=== PATIENT | male | born 1950 | race Caucasian/White ===

== ENCOUNTER 2023-05-16 06:17 | Inpatient (IN) | payer MEDICARE, OTHER ==
[~2023-05-16] VITALS: Ht 162.6 cm; Wt 72.6 kg
[2023-05-16] MEDS ORDERED: RAMI1.2527 PO (06:31)
[2023-05-16] MEDS ORDERED: ALPR0.255 PO (06:31)
[2023-05-16] MEDS ORDERED: AMLO2.5T2 PO (06:31)
[2023-05-16] MEDS ORDERED: HYDR-4676 PO (06:31)
[2023-05-16] MEDS ORDERED: PROC5TAB56 PO (06:31)
[2023-05-16] MEDS ORDERED: ATOR10TA PO (06:31)
[2023-05-16] MEDS ORDERED: FAMO10TA41 PO (06:31)
[2023-05-16] MEDS ORDERED: ZOLP1.752 SL (06:31)
[2023-05-16] MEDS ORDERED: LITH150C PO (06:31)
[2023-05-16] MEDS: PANTOPRAZOLE SODIUM IV 80 MG in IV DEXTROSE 5% 100 ML IV ONE ×2 (07:40→08:02)
[2023-05-16] MEDS ORDERED: PANTOPRAZOLE SODIUM 40 MG VIAL ONE ×3 (07:46→21:20)
[2023-05-16 08:15] LABS: BASOPHILS # (AUTO) 0.1 K/UL (0.0-0.2); BASOPHILS % (AUTO) 0.8 % (0.0-2.0); EOSINOPHILS # (AUTO) 0.1 K/uL (0.0-0.7); HEMATOCRIT 45.3 % (36.7-47.1); HEMOGLOBIN 15.7 g/dL (12.5-16.3); LYMPHOCYTES # (AUTO) 1.1 K/uL (0.8-4.8); LYMPHOCYTES % (AUTO) 9.4 % (20.5-51.5); MEAN CORPUSCULAR HEMOGLOBIN 33.8 uug (23.8-33.4); MEAN CORPUSCULAR HGB CONC 35 g/dL (32.5-36.3); MEAN CORPUSCULAR VOLUME 97.5 fL (73.0-96.2); MONOCYTES # (AUTO) 0.8 K/uL (0.1-1.30); MONOCYTES % (AUTO) 6.8 % (0.0-11.0); NEUTROPHILS # (AUTO) 9.7 K/uL (1.8-8.9); PLATELET COUNT (AUTO) 313 K/uL (152-348); RED BLOOD CELL COUNT(AUTO) 4.65 MIL/uL (4.06-5.63); RED CELL DISTRIBUTION WIDTH 14.6 % (12.1-16.2); WHITE BLOOD COUNT (AUTO) 11.9 K/uL (3.6-10.2)
[2023-05-16 08:26] LABS: DIFFERENTIAL COMMENT 1; MAGNESIUM 2.7 mg/dL (1.8-2.4)
[2023-05-16 08:27] LABS: ETHANOL < 3 MG/DL (0-10)
[2023-05-16 08:32] LABS: ALANINE AMINOTRANSFERASE 24 U/L (16-63); ALBUMIN 4.1 g/dL (3.4-5.0); ALKALINE PHOSPHATASE 126 U/L (50-136); ASPARTATE AMINOTRANSFERASE 19 U/L (15-37); BILIRUBIN,DIRECT 0.2 mg/dL (0.0-0.2); BILIRUBIN,TOTAL 0.6 mg/dL (0.2-1.0); CALCIUM 9.8 mg/dL (8.5-10.1); CARBON DIOXIDE 25 mmol/L (21-32); CHLORIDE 105 mmol/L (98-107); CREATINE KINASE, TOTAL 109 U/L (39-308); CREATININE 0.8 mg/dL (0.6-1.3); GLUCOSE 131 mg/dL (74-106); POTASSIUM 3.1 mmol/L (3.5-5.1); SODIUM SERUM 143 mmol/L (136-145); TOTAL PROTEIN, SERUM 7.7 g/dL (6.4-8.2); UREA NITROGEN, BLOOD 9 mg/dL (7-18)
[2023-05-16 08:38] LABS: ACETAMINOPHEN < 2.0 ug/mL (10-30)
[2023-05-16 09:16] LABS: *BILIRUBIN,URIN NEGATIVE (NEGATIVE); *BLOOD, URINE NEGATIVE (NEGATIVE); *CLARITY,URINE CLEAR (CLEAR); *COLOR,URINE LIGHT YELLOW (YELLOW); *KETONES,URINE TRACE (NEGATIVE); *PROTEIN,URINE NEGATIVE (NEGATIVE); *UROBILINOGEN,URINE 0.2 E.U./dl (NORMAL); LEUKOCYTE ESTERASE ,URINE NEGATIVE (NEGATIVE); NITRITE, URINE NEGATIVE (NEGATIVE); UGLUCOSE NEGATIVE (NEGATIVE)
[2023-05-16] MEDS ORDERED: PIPERACILLIN/TAZO 4.5 GM VIAL IV ONE (09:20)
[2023-05-16] MEDS: PIPERACILLIN SODIUM/TAZOBACTAM 4.5 G in IV DEXTROSE 5% 50 ML IV ONE (09:32)
[2023-05-16] MEDS: IV NORMAL SALINE 1000 ML BAG IV ONE (09:39)
[2023-05-16 09:43] LABS: *AMPHETAMINE, URINE NEGATIVE (NEGATIVE); *BARBITURATE, URINE NEGATIVE (NEGATIVE); *BENZODIAZEPINE, URINE POSITIVE (NEGATIVE); *CANNABINOID, URINE POSITIVE (NEGATIVE); *COCCAINE, URINE NEGATIVE (NEGATIVE); *OPIATE, URINE NEGATIVE (NEGATIVE); *PHENCYCLIDINE SCREEN,URINE NEGATIVE (NEGATIVE); FENTANYL, URINE NEGATIVE (NEGATIVE)
[2023-05-16] MEDS: ETOMIDATE 20 MG/10 ML VIAL IV ONE (12:10)
[2023-05-16] MEDS: SUCCINYLCHOLINE CHLORIDE 200 MG/10 ML VIAL IV ONE (12:10)
[2023-05-16 12:37] LABS: BACTERIA,URINE NONE SEEN /HPF (NONE SEEN); RBC,URINE 0-3 /HPF (0-3); SQUAMOUS EPITHELIAL CELL,UR NONE SEEN /HPF (NONE SEEN); WBC,URINE 0-3 /HPF (0-3)
[2023-05-16] MEDS ORDERED: PANTOPRAZOLE SODIUM IV 40 MG in IV DEXTROSE 5% 100 ML IV SCH (12:45)
[2023-05-16 13:21] LABS: ABG BASE EXCESS -4.9 mmol/L (-2.0-2.0); ABG HCO3 18.7 mmol/L (22.0-26.0); ABG PCO2 31.1 mmHg (35.0-48.0); ABG PH 7.396 (7.340-7.440); ABG SITE RIGHT RADIAL; ABG TOTAL HEMOGLOBIN 15.3 G/dL (14.0-18.0); AaDO2 95.7 mmHg; COHb 0.8 % (0.0-3.9); MetHb 0.3 % (0.0-1.5); O2Hb 95.6 % (94.0-97.0)
[2023-05-16] MEDS ORDERED: PROPOFOL 100 ML IV PRN (15:00)
[2023-05-16] MEDS ORDERED: MAGNESIUM HYDROXIDE 30 ML LIQUID UDC PO PRN (15:00)
[2023-05-16] MEDS ORDERED: IV NS 1000 ML 1,000 ML IV PRN (15:00)
[2023-05-16] MEDS ORDERED: ONDANSETRON 4 MG/2 ML VIAL IV PRN (15:00)
[2023-05-16] MEDS ORDERED: POTASSIUM CHLORIDE 100 ML ONE (15:22)
[2023-05-16] MEDS: PANTOPRAZOLE SODIUM 40 MG VIAL IV SCH (15:24)
[2023-05-16 15:34] LABS: ABG BASE EXCESS -4.6 mmol/L (-2.0-2.0); ABG HCO3 18.8 mmol/L (22.0-26.0); ABG PCO2 30.7 mmHg (35.0-48.0); ABG PH 7.404 (7.340-7.440); ABG PO2 259.3 mmHg (75.0-100.0); ABG SITE RIGHT RADIAL; ABG TOTAL HEMOGLOBIN 15.7 G/dL (14.0-18.0); AaDO2 99.6 mmHg; COHb 0.5 % (0.0-3.9); MetHb 0.5 % (0.0-1.5); O2Hb 98.6 % (94.0-97.0); VT, ABG 450 mL
[2023-05-16] MEDS: POTASSIUM CHLORIDE 50 ML IV SCH (15:35)
[2023-05-16 16:40] LABS: ABG BASE EXCESS -3.7 mmol/L (-2.0-2.0); ABG HCO3 18.3 mmol/L (22.0-26.0); ABG PCO2 26.1 mmHg (35.0-48.0); ABG PH 7.463 (7.340-7.440); ABG PO2 77.4 mmHg (75.0-100.0); ABG SITE RIGHT RADIAL; ABG TOTAL HEMOGLOBIN 15.4 G/dL (14.0-18.0); AaDO2 96.3 mmHg; COHb 0.7 % (0.0-3.9); MetHb 0.4 % (0.0-1.5); O2Hb 95.7 % (94.0-97.0); VT, ABG 450 mL
[2023-05-16] MEDS ORDERED: ROCURONIUM BROMIDE 50 MG/5 ML VIAL ONE (17:00)
[2023-05-16] MEDS ORDERED: SUCCINYLCHOLINE CHLORIDE 200 MG/10 ML VIAL ONE (17:00)
[2023-05-16] MEDS ORDERED: ETOMIDATE 20 MG/10 ML VIAL ONE (17:00)
[2023-05-16 17:26] LABS: CALCIUM 9.1 mg/dL (8.5-10.1); CARBON DIOXIDE 18 mmol/L (21-32); CHLORIDE 111 mmol/L (98-107); CREATININE 0.9 mg/dL (0.6-1.3); GLUCOSE 183 mg/dL (74-106); POTASSIUM 4.1 mmol/L (3.5-5.1); SODIUM SERUM 142 mmol/L (136-145); UREA NITROGEN, BLOOD 11 mg/dL (7-18)
[2023-05-16] MEDS: VANCOMYCIN IV 1,000 MG in IV DEXTROSE 5% 250 ML IV SCH (17:57)
[2023-05-16] MEDS ORDERED: VANCOMYCIN IV 200 ML ONE (17:57)
[2023-05-16] MEDS ORDERED: LIDOCAINE 2%-EPI 1:100,000 20 ML VIAL ONE (18:27)
[2023-05-16] MEDS: FENTANYL CITRATE/PF 1,000 MCG in IV NORMAL SALINE 80 ML IV PRN (18:30)
[2023-05-16] MEDS: ROCURONIUM BROMIDE 50 MG/5 ML VIAL IV ONE (18:45)
[2023-05-16] MEDS ORDERED: PIPERACILLIN/TAZOBACTAM/D5W 50 ML IV ONE (19:27)
[2023-05-16] MEDS: PIPERACILLIN SODIUM/TAZOBACTAM 3.375 G in IV DEXTROSE 5% 50 ML IV SCH (19:28)
[2023-05-17 07:21] LABS: BASOPHILS % (AUTO) 0.2 % (0.0-2.0); HEMATOCRIT 37.7 % (36.7-47.1); HEMOGLOBIN 13.1 g/dL (12.5-16.3); LYMPHOCYTES # (AUTO) 0.8 K/uL (0.8-4.8); LYMPHOCYTES % (AUTO) 5.3 % (20.5-51.5); MEAN CORPUSCULAR HEMOGLOBIN 33.7 uug (23.8-33.4); MEAN CORPUSCULAR HGB CONC 35 g/dL (32.5-36.3); MEAN CORPUSCULAR VOLUME 97.3 fL (73.0-96.2); MONOCYTES % (AUTO) 6.4 % (0.0-11.0); NEUTROPHILS # (AUTO) 14.1 K/uL (1.8-8.9); NEUTROPHILS % (AUTO) 88.1 % (38.5-71.5); PLATELET COUNT (AUTO) 263 K/uL (152-348); RED BLOOD CELL COUNT(AUTO) 3.88 MIL/uL (4.06-5.63); RED CELL DISTRIBUTION WIDTH 14.7 % (12.1-16.2)
[2023-05-17 07:42] LABS: DIFFERENTIAL COMMENT 1
[2023-05-17 07:53] LABS: CARBON DIOXIDE 24 mmol/L (21-32); CHLORIDE 112 mmol/L (98-107); CHOLESTEROL 113 mg/dL (<200); CREATININE 1.1 mg/dL (0.6-1.3); GLUCOSE 223 mg/dL (74-106); HDL CHOLESTEROL 60 mg/dL (40-60); MAGNESIUM 2.6 mg/dL (1.8-2.4); PHOSPHOROUS 3.1 mg/dL (2.5-4.9); POTASSIUM 3.5 mmol/L (3.5-5.1); SODIUM SERUM 145 mmol/L (136-145); TRIGLYCERIDES 36 MG/DL (30-150); UREA NITROGEN, BLOOD 19 mg/dL (7-18)
[2023-05-17 08:24] LABS: CALCIUM 9.1 mg/dL (8.5-10.1)
[2023-05-17] MEDS ORDERED: PANTOPRAZOLE SODIUM 40 MG VIAL ONE ×2 (09:31→21:09)
[2023-05-17] MEDS ORDERED: VANCOMYCIN IV 200 ML ONE (17:31)
[2023-05-17] MEDS ORDERED: PIPERACILLIN/TAZOBACTAM/D5W 50 ML IV ONE ×2 (18:42→21:09)
[2023-05-18] VITALS (21 sets, daily range): BP systolic 101–170; BP diastolic 59–95; TEMP 98.8–100.2; O2SAT 95–99
[2023-05-18 04:13] LABS: BASOPHILS # (AUTO) 0.1 K/UL (0.0-0.2); BASOPHILS % (AUTO) 0.3 % (0.0-2.0); HEMATOCRIT 39.9 % (36.7-47.1); HEMOGLOBIN 13.8 g/dL (12.5-16.3); LYMPHOCYTES # (AUTO) 0.8 K/uL (0.8-4.8); MEAN CORPUSCULAR HEMOGLOBIN 33.8 uug (23.8-33.4); MEAN CORPUSCULAR HGB CONC 35 g/dL (32.5-36.3); MEAN CORPUSCULAR VOLUME 97.4 fL (73.0-96.2); MONOCYTES # (AUTO) 1.5 K/uL (0.1-1.30); MONOCYTES % (AUTO) 7.7 % (0.0-11.0); NEUTROPHILS # (AUTO) 16.7 K/uL (1.8-8.9); PLATELET COUNT (AUTO) 266 K/uL (152-348); RED CELL DISTRIBUTION WIDTH 14.4 % (12.1-16.2)
[2023-05-18] MEDS ORDERED: VANCOMYCIN IV 200 ML ONE (04:30)
[2023-05-18] MEDS ORDERED: PIPERACILLIN/TAZOBACTAM/D5W 50 ML IV ONE ×3 (04:31→18:23)
[2023-05-18 04:48] LABS: CALCIUM 9.6 mg/dL (8.5-10.1); CARBON DIOXIDE 22 mmol/L (21-32); CHLORIDE 113 mmol/L (98-107); CREATININE 1.1 mg/dL (0.6-1.3); GLUCOSE 181 mg/dL (74-106); MAGNESIUM 2.2 mg/dL (1.8-2.4); PHOSPHOROUS 3.1 mg/dL (2.5-4.9); POTASSIUM 3.5 mmol/L (3.5-5.1); SODIUM SERUM 149 mmol/L (136-145); UREA NITROGEN, BLOOD 19 mg/dL (7-18)
[2023-05-18 05:12] LABS: DIFFERENTIAL COMMENT 1
[2023-05-18 05:23] LABS: ABG BASE EXCESS -4.3 mmol/L (-2.0-2.0); ABG PCO2 39.4 mmHg (35.0-48.0); ABG PH 7.344 (7.340-7.440); ABG TOTAL HEMOGLOBIN 14.5 G/dL (14.0-18.0); AaDO2 98.5 mmHg; COHb 0.6 % (0.0-3.9); MetHb 0.4 % (0.0-1.5); O2Hb 97.9 % (94.0-97.0); VT, ABG 450 mL
[2023-05-18] MEDS: IV 1/2NS 1000 ML 1,000 ML IV PRN (09:15)
[2023-05-18] MEDS ORDERED: PANTOPRAZOLE SODIUM 40 MG VIAL ONE ×2 (10:20→21:00)
[2023-05-18] MEDS: VANCOMYCIN IV 1,250 MG in IV DEXTROSE 5% 250 ML IV SCH (12:01)
[2023-05-18] MEDS: FENTANYL CITRATE/PF 1,000 MCG in IV NORMAL SALINE 80 ML IV PRN (18:28)
[2023-05-18] MEDS ORDERED: NEOMY/BACITRA/POLYMYXIN B OINT UD PACKET TP ONE (21:43)
[2023-05-18] MEDS: NEOMY/BACITRA/POLYMYXIN B OINT UD PACKET TP SCH (21:44)
[2023-05-19] VITALS (24 sets, daily range): BP systolic 113–158; BP diastolic 70–99; TEMP 99.6–100.2; O2SAT 95–98
[2023-05-19] MEDS ORDERED: PIPERACILLIN SODIUM/TAZO 3.375 GM VIAL ONE (01:36)
[2023-05-19 05:08] LABS: ABG BASE EXCESS -3.2 mmol/L (-2.0-2.0); ABG HCO3 21.3 mmol/L (22.0-26.0); ABG PCO2 36.4 mmHg (35.0-48.0); ABG PH 7.385 (7.340-7.440); ABG PO2 79.2 mmHg (75.0-100.0); ABG SITE LEFT RADIAL; ABG TOTAL HEMOGLOBIN 13.9 G/dL (14.0-18.0); AaDO2 95.6 mmHg; COHb 0.5 % (0.0-3.9); MetHb 0.4 % (0.0-1.5); O2Hb 95.3 % (94.0-97.0); VT, ABG 450 mL
[2023-05-19] MEDS ORDERED: PIPERACILLIN/TAZOBACTAM/D5W 0 ML IV ONE (06:21)
[2023-05-19 06:48] LABS: CALCIUM 9.5 mg/dL (8.5-10.1); CARBON DIOXIDE 24 mmol/L (21-32); CHLORIDE 116 mmol/L (98-107); CREATININE 1.2 mg/dL (0.6-1.3); GLUCOSE 127 mg/dL (74-106); MAGNESIUM 2.2 mg/dL (1.8-2.4); POTASSIUM 3.1 mmol/L (3.5-5.1); SODIUM SERUM 150 mmol/L (136-145); UREA NITROGEN, BLOOD 19 mg/dL (7-18)
[2023-05-19 08:03] LABS: BASOPHILS # (AUTO) 0.1 K/UL (0.0-0.2); BASOPHILS % (AUTO) 0.6 % (0.0-2.0); DIFFERENTIAL COMMENT 0; EOSINOPHILS # (AUTO) 0.1 K/uL (0.0-0.7); EOSINOPHILS % (AUTO) 0.4 % (0.0-7.0); HEMATOCRIT 37.1 % (36.7-47.1); HEMOGLOBIN 12.8 g/dL (12.5-16.3); LYMPHOCYTES % (AUTO) 7.5 % (20.5-51.5); MEAN CORPUSCULAR HEMOGLOBIN 33.6 uug (23.8-33.4); MEAN CORPUSCULAR HGB CONC 34 g/dL (32.5-36.3); MEAN CORPUSCULAR VOLUME 97.6 fL (73.0-96.2); MONOCYTES # (AUTO) 1.5 K/uL (0.1-1.30); MONOCYTES % (AUTO) 10.8 % (0.0-11.0); NEUTROPHILS # (AUTO) 10.8 K/uL (1.8-8.9); NEUTROPHILS % (AUTO) 80.7 % (38.5-71.5); PLATELET COUNT (AUTO) 261 K/uL (152-348); RED BLOOD CELL COUNT(AUTO) 3.81 MIL/uL (4.06-5.63); RED CELL DISTRIBUTION WIDTH 14.3 % (12.1-16.2); WHITE BLOOD COUNT (AUTO) 13.4 K/uL (3.6-10.2)
[2023-05-19] MEDS ORDERED: PANTOPRAZOLE SODIUM 40 MG VIAL ONE ×2 (09:08→21:13)
[2023-05-19] MEDS ORDERED: PIPERACILLIN/TAZOBACTAM/D5W 50 ML IV ONE (09:09)
[2023-05-19] MEDS ORDERED: NEOMY/BACITRAC/POLYMI OINT 28.35 GM TUBE ONE (09:09)
[2023-05-19] MEDS ORDERED: POTASSIUM CHLORIDE 200 ML ONE (09:26)
[2023-05-19] MEDS: POTASSIUM CHLORIDE 50 ML IV SCH (09:27)
[2023-05-19] MEDS: PIPERACILLIN SODIUM/TAZOBACTAM 3.375 G in IV DEXTROSE 5% 100 ML IV SCH (13:59)
[2023-05-20] MEDS: VANCOMYCIN IV 1,250 MG in IV DEXTROSE 5% 250 ML IV SCH (00:09)
[2023-05-20 05:21] LABS: BASOPHILS # (AUTO) 0.1 K/UL (0.0-0.2); BASOPHILS % (AUTO) 0.8 % (0.0-2.0); EOSINOPHILS # (AUTO) 0.2 K/uL (0.0-0.7); EOSINOPHILS % (AUTO) 1.9 % (0.0-7.0); HEMATOCRIT 37.5 % (36.7-47.1); HEMOGLOBIN 13.4 g/dL (12.5-16.3); LYMPHOCYTES # (AUTO) 1.8 K/uL (0.8-4.8); LYMPHOCYTES % (AUTO) 14.2 % (20.5-51.5); MEAN CORPUSCULAR HEMOGLOBIN 34.8 uug (23.8-33.4); MEAN CORPUSCULAR HGB CONC 36 g/dL (32.5-36.3); MEAN CORPUSCULAR VOLUME 97.3 fL (73.0-96.2); MONOCYTES # (AUTO) 1.4 K/uL (0.1-1.30); MONOCYTES % (AUTO) 11.4 % (0.0-11.0); NEUTROPHILS # (AUTO) 8.9 K/uL (1.8-8.9); NEUTROPHILS % (AUTO) 71.7 % (38.5-71.5); PLATELET COUNT (AUTO) 246 K/uL (152-348); RED BLOOD CELL COUNT(AUTO) 3.85 MIL/uL (4.06-5.63); RED CELL DISTRIBUTION WIDTH 14.3 % (12.1-16.2); WHITE BLOOD COUNT (AUTO) 12.5 K/uL (3.6-10.2)
[2023-05-20 05:23] LABS: DIFFERENTIAL COMMENT 1
[2023-05-20 05:32] LABS: CALCIUM 9.3 mg/dL (8.5-10.1); CARBON DIOXIDE 23 mmol/L (21-32); CHLORIDE 119 mmol/L (98-107); CREATININE 1.2 mg/dL (0.6-1.3); GLUCOSE 115 mg/dL (74-106); MAGNESIUM 2.3 mg/dL (1.8-2.4); PHOSPHOROUS 3.2 mg/dL (2.5-4.9); POTASSIUM 3.6 mmol/L (3.5-5.1); UREA NITROGEN, BLOOD 20 mg/dL (7-18)
[2023-05-20 05:36] LABS: ABG BASE EXCESS -4.4 mmol/L (-2.0-2.0); ABG PCO2 34.7 mmHg (35.0-48.0); ABG PH 7.378 (7.340-7.440); ABG PO2 69.2 mmHg (75.0-100.0); ABG TOTAL HEMOGLOBIN 14.3 G/dL (14.0-18.0); AaDO2 93.7 mmHg; COHb 1.1 % (0.0-3.9); MetHb 0.5 % (0.0-1.5); O2Hb 93.6 % (94.0-97.0); VT, ABG 450 mL
[2023-05-20 05:38] LABS: SODIUM SERUM 156 mmol/L (136-145)
[2023-05-20] MEDS ORDERED: PANTOPRAZOLE SODIUM 40 MG VIAL ONE ×2 (08:57→21:08)
[2023-05-20] MEDS ORDERED: hydrALAZINE HCL 20 MG/1 ML VIAL IV PRN (14:00)
[2023-05-20] MEDS ORDERED: RAMI10CA69 PO (14:21)
[2023-05-20] MEDS ORDERED: ATOR40TA PO (14:21)
[2023-05-20] MEDS ORDERED: AMLO-212 PO (14:21)
[2023-05-20] MEDS ORDERED: CLOP75TA15 PO (14:21)
[2023-05-20] MEDS ORDERED: ZOLP5TAB8 PO (14:24)
[2023-05-20] MEDS ORDERED: FAMO40TA7 PO (14:25)
[2023-05-20] MEDS ORDERED: LITH450T2 PO (14:25)
[2023-05-20] MEDS ORDERED: VENL150C58 PO (16:26)
[2023-05-20] MEDS ORDERED: METH36TA PO (16:26)
[2023-05-20] MEDS ORDERED: ASPI81TA31 PO (16:27)
[2023-05-20] MEDS ORDERED: NEOMY/BACITRA/POLYMYXIN B OINT UD PACKET TP ONE (21:08)
[2023-05-21] VITALS (17 sets, daily range): BP systolic 109–171; BP diastolic 58–88; TEMP 99–99.6; O2SAT 94–97
[2023-05-21] MEDS ORDERED: FENTANYL CITRATE 100 MCG/2 ML AMPUL ONE (02:25)
[2023-05-21 05:34] LABS: BASOPHILS # (AUTO) 0.1 K/UL (0.0-0.2); BASOPHILS % (AUTO) 0.5 % (0.0-2.0); EOSINOPHILS # (AUTO) 0.1 K/uL (0.0-0.7); EOSINOPHILS % (AUTO) 0.6 % (0.0-7.0); HEMATOCRIT 37.8 % (36.7-47.1); HEMOGLOBIN 12.9 g/dL (12.5-16.3); LYMPHOCYTES # (AUTO) 1.1 K/uL (0.8-4.8); LYMPHOCYTES % (AUTO) 10.1 % (20.5-51.5); MEAN CORPUSCULAR HEMOGLOBIN 33.6 uug (23.8-33.4); MEAN CORPUSCULAR HGB CONC 34 g/dL (32.5-36.3); MEAN CORPUSCULAR VOLUME 98.4 fL (73.0-96.2); MONOCYTES # (AUTO) 1.1 K/uL (0.1-1.30); MONOCYTES % (AUTO) 10.1 % (0.0-11.0); NEUTROPHILS # (AUTO) 8.8 K/uL (1.8-8.9); NEUTROPHILS % (AUTO) 78.7 % (38.5-71.5); PLATELET COUNT (AUTO) 230 K/uL (152-348); RED BLOOD CELL COUNT(AUTO) 3.84 MIL/uL (4.06-5.63); RED CELL DISTRIBUTION WIDTH 14.4 % (12.1-16.2); WHITE BLOOD COUNT (AUTO) 11.2 K/uL (3.6-10.2)
[2023-05-21 05:55] LABS: CREATININE 1.2 mg/dL (0.6-1.3); POTASSIUM 3.5 mmol/L (3.5-5.1)
[2023-05-21 06:17] LABS: DIFFERENTIAL COMMENT 1
[2023-05-21] MEDS ORDERED: ACETAMINOPHEN 325 MG TABLET ONE (06:57)
[2023-05-21] MEDS: ACETAMINOPHEN 325 MG TABLET PO PRN (07:03)
[2023-05-21] MEDS ORDERED: hydrALAZINE HCL 20 MG/1 ML VIAL ONE ×2 (08:20→15:16)
[2023-05-21] MEDS: hydrALAZINE HCL 20 MG/1 ML VIAL IV PRN (08:26)
[2023-05-21] MEDS ORDERED: PANTOPRAZOLE SODIUM 40 MG VIAL ONE ×2 (09:20→21:14)
[2023-05-21] MEDS: IV D5W 1000ML 1,000 ML IV PRN (10:00)
[2023-05-21] MEDS ORDERED: ACETAMINOPHEN 650 MG/20.3 ML LIQUID UDC ONE (15:16)
[2023-05-21] MEDS: PROTEIN SUPPLEMENT (PROSTAT) 30 ML LIQUID GT SCH (17:00)
[2023-05-22] VITALS (20 sets, daily range): BP systolic 109–184; BP diastolic 62–91; TEMP 98.1–101.2; O2SAT 95–99
[2023-05-22 04:31] LABS: BASOPHILS # (AUTO) 0.1 K/UL (0.0-0.2); BASOPHILS % (AUTO) 0.6 % (0.0-2.0); EOSINOPHILS # (AUTO) 0.2 K/uL (0.0-0.7); EOSINOPHILS % (AUTO) 1.5 % (0.0-7.0); LYMPHOCYTES # (AUTO) 1.1 K/uL (0.8-4.8); LYMPHOCYTES % (AUTO) 8.6 % (20.5-51.5); MEAN CORPUSCULAR HGB CONC 35 g/dL (32.5-36.3); MONOCYTES # (AUTO) 1.3 K/uL (0.1-1.30); MONOCYTES % (AUTO) 9.4 % (0.0-11.0); NEUTROPHILS # (AUTO) 10.7 K/uL (1.8-8.9); NEUTROPHILS % (AUTO) 79.9 % (38.5-71.5); PLATELET COUNT (AUTO) 226 K/uL (152-348); RED BLOOD CELL COUNT(AUTO) 3.82 MIL/uL (4.06-5.63); RED CELL DISTRIBUTION WIDTH 14.3 % (12.1-16.2); WHITE BLOOD COUNT (AUTO) 13.4 K/uL (3.6-10.2)
[2023-05-22 04:43] LABS: DIFFERENTIAL COMMENT 1
[2023-05-22 04:48] LABS: CALCIUM 9.1 mg/dL (8.5-10.1); CREATININE 1.1 mg/dL (0.6-1.3); MAGNESIUM 2.2 mg/dL (1.8-2.4); PHOSPHOROUS 2.1 mg/dL (2.5-4.9); POTASSIUM 3.1 mmol/L (3.5-5.1)
[2023-05-22] MEDS ORDERED: hydrALAZINE HCL 20 MG/1 ML VIAL ONE (08:09)
[2023-05-22 08:13] LABS: ABG BASE EXCESS -0.8 mmol/L (-2.0-2.0); ABG PCO2 35.9 mmHg (35.0-48.0); ABG PH 7.424 (7.340-7.440); ABG PO2 85.8 mmHg (75.0-100.0); ABG SITE LEFT RADIAL; ABG TOTAL HEMOGLOBIN 18.1 G/dL (14.0-18.0); AaDO2 96.7 mmHg; COHb 0.8 % (0.0-3.9); MetHb 0.4 % (0.0-1.5); O2Hb 96.2 % (94.0-97.0)
[2023-05-22] MEDS ORDERED: PANTOPRAZOLE SODIUM 40 MG VIAL ONE (08:27)
[2023-05-22] MEDS ORDERED: ACETAMINOPHEN 650 MG/20.3 ML LIQUID UDC ONE (08:38)
[2023-05-22] MEDS ORDERED: DC PROPOFOL ONCE EXTUBATED XX PRN (08:45)
[2023-05-22] MEDS: POTASSIUM CHLORIDE 20 MEQ POWDER PACKET NG ONE (11:08)
[2023-05-22] MEDS: NEUTRA PHOS PACKET GT ONE (16:31)
[2023-05-23] VITALS (8 sets, daily range): BP systolic 117–153; BP diastolic 67–79; TEMP 97.6–98.4; O2SAT 94–99
[2023-05-23] MEDS: VANCOMYCIN IV 750 MG in IV DEXTROSE 5% 250 ML IV SCH (00:22)
[2023-05-23 06:35] LABS: ABG PCO2 32.6 mmHg (35.0-48.0); ABG PH 7.467 (7.340-7.440); ABG PO2 60.5 mmHg (75.0-100.0); ABG SITE RIGHT RADIAL; ABG TOTAL HEMOGLOBIN 13.4 G/dL (14.0-18.0); AaDO2 92.8 mmHg; COHb 0.9 % (0.0-3.9); MetHb 0.3 % (0.0-1.5); O2Hb 92.7 % (94.0-97.0)
[2023-05-23 06:44] LABS: BASOPHILS # (AUTO) 0.1 K/UL (0.0-0.2); BASOPHILS % (AUTO) 0.3 % (0.0-2.0); EOSINOPHILS # (AUTO) 0.1 K/uL (0.0-0.7); EOSINOPHILS % (AUTO) 0.4 % (0.0-7.0); HEMATOCRIT 42.3 % (36.7-47.1); HEMOGLOBIN 14.5 g/dL (12.5-16.3); LYMPHOCYTES # (AUTO) 1.3 K/uL (0.8-4.8); MEAN CORPUSCULAR HEMOGLOBIN 33.5 uug (23.8-33.4); MEAN CORPUSCULAR HGB CONC 34 g/dL (32.5-36.3); MEAN CORPUSCULAR VOLUME 97.8 fL (73.0-96.2); MONOCYTES # (AUTO) 1.3 K/uL (0.1-1.30); NEUTROPHILS # (AUTO) 13.2 K/uL (1.8-8.9); NEUTROPHILS % (AUTO) 83.3 % (38.5-71.5); PLATELET COUNT (AUTO) 237 K/uL (152-348); RED BLOOD CELL COUNT(AUTO) 4.33 MIL/uL (4.06-5.63); RED CELL DISTRIBUTION WIDTH 14.2 % (12.1-16.2); WHITE BLOOD COUNT (AUTO) 15.8 K/uL (3.6-10.2)
[2023-05-23 07:02] LABS: DIFFERENTIAL COMMENT 1
[2023-05-23 07:17] LABS: CALCIUM 9.7 mg/dL (8.5-10.1); CARBON DIOXIDE 25 mmol/L (21-32); CHLORIDE 115 mmol/L (98-107); GLUCOSE 144 mg/dL (74-106); MAGNESIUM 2.6 mg/dL (1.8-2.4); PHOSPHOROUS 3.1 mg/dL (2.5-4.9); POTASSIUM 3.3 mmol/L (3.5-5.1); SODIUM SERUM 154 mmol/L (136-145); UREA NITROGEN, BLOOD 19 mg/dL (7-18)
[2023-05-23] MEDS: IV D5W 1000ML 1,000 ML IV PRN (09:42)
[2023-05-23] MEDS: POTASSIUM CHLORIDE 20 MEQ POWDER PACKET GT ONE (14:33)
[2023-05-24 04:00] VITALS: BP 137/68; TEMP 98; O2SAT 99
[2023-05-24 07:03] LABS: BASOPHILS # (AUTO) 0.2 K/UL (0.0-0.2); BASOPHILS % (AUTO) 1.3 % (0.0-2.0); EOSINOPHILS # (AUTO) 2.3 K/uL (0.0-0.7); EOSINOPHILS % (AUTO) 18.9 % (0.0-7.0); HEMATOCRIT 40.1 % (36.7-47.1); HEMOGLOBIN 13.5 g/dL (12.5-16.3); LYMPHOCYTES # (AUTO) 0.6 K/uL (0.8-4.8); LYMPHOCYTES % (AUTO) 4.6 % (20.5-51.5); MEAN CORPUSCULAR HGB CONC 34 g/dL (32.5-36.3); MONOCYTES # (AUTO) 0.6 K/uL (0.1-1.30); MONOCYTES % (AUTO) 4.6 % (0.0-11.0); NEUTROPHILS # (AUTO) 8.6 K/uL (1.8-8.9); NEUTROPHILS % (AUTO) 70.6 % (38.5-71.5); PLATELET COUNT (AUTO) 263 K/uL (152-348); RED BLOOD CELL COUNT(AUTO) 4.09 MIL/uL (4.06-5.63); RED CELL DISTRIBUTION WIDTH 14.4 % (12.1-16.2); WHITE BLOOD COUNT (AUTO) 12.2 K/uL (3.6-10.2)
[2023-05-24 07:21] LABS: DIFFERENTIAL COMMENT 1
[2023-05-24 07:35] LABS: CALCIUM 9.3 mg/dL (8.5-10.1); MAGNESIUM 2.6 mg/dL (1.8-2.4); PHOSPHOROUS 2.5 mg/dL (2.5-4.9); POTASSIUM 2.9 mmol/L (3.5-5.1)
[2023-05-24 08:00] VITALS: BP 110/72; TEMP 98.6; O2SAT 98
[2023-05-24] MEDS ORDERED: IV D5W 1000ML 1,000 ML IV ONE (10:45)
[2023-05-24] MEDS: POTASSIUM CHLORIDE 20 MEQ TAB.PRT.SR PO ONE (10:56)
[2023-05-24] MEDS: IV D5W 1000ML 1,000 ML IV ONE (10:57)
[2023-05-24 11:30] VITALS: BP 158/80; TEMP 98.3; O2SAT 97
[2023-05-24 15:38] VITALS: BP 152/66; TEMP 99.5; O2SAT 96
[2023-05-24 20:00] VITALS: BP 147/80; TEMP 98.4; O2SAT 97
[2023-05-24] MEDS: LORAZEPAM 0.5 MG TABLET PO PRN (20:56)
[2023-05-25 04:00] VITALS: BP 156/84; TEMP 98.6; O2SAT 95
[2023-05-25 07:40] LABS: BASOPHILS # (AUTO) 0.1 K/UL (0.0-0.2); BASOPHILS % (AUTO) 1.1 % (0.0-2.0); EOSINOPHILS # (AUTO) 0.3 K/uL (0.0-0.7); EOSINOPHILS % (AUTO) 3.4 % (0.0-7.0); HEMATOCRIT 36.7 % (36.7-47.1); HEMOGLOBIN 12.8 g/dL (12.5-16.3); LYMPHOCYTES % (AUTO) 9.5 % (20.5-51.5); MEAN CORPUSCULAR HEMOGLOBIN 33.6 uug (23.8-33.4); MEAN CORPUSCULAR HGB CONC 35 g/dL (32.5-36.3); MEAN CORPUSCULAR VOLUME 96.4 fL (73.0-96.2); NEUTROPHILS # (AUTO) 7.7 K/uL (1.8-8.9); PLATELET COUNT (AUTO) 280 K/uL (152-348); WHITE BLOOD COUNT (AUTO) 10.2 K/uL (3.6-10.2)
[2023-05-25 07:51] LABS: DIFFERENTIAL COMMENT 1
[2023-05-25 08:01] LABS: CALCIUM 9.2 mg/dL (8.5-10.1); MAGNESIUM 2.3 mg/dL (1.8-2.4)
[2023-05-25 08:29] LABS: POTASSIUM 2.7 mmol/L (3.5-5.1)
[2023-05-25] MEDS ORDERED: POTASSIUM CHLORIDE 20 MEQ TAB.PRT.SR PO SCH (09:30)
[2023-05-25] MEDS: POTASSIUM CHLORIDE 20 MEQ POWDER PACKET PO SCH (09:40)
[2023-05-25] MEDS: RAMIPRIL 5 MG CAPSULE PO SCH (12:25)
[2023-05-25] MEDS: LITHIUM CARBONATE CR 450 MG TABLET.SA PO SCH (12:25)
[2023-05-25] MEDS: VENLAFAXINE XR 150 MG CAP.SR.24H PO SCH (12:26)
[2023-05-25] MEDS: ALPRAZOLAM 0.25 MG TABLET PO PRN (12:37)
[2023-05-25 15:09] VITALS: TEMP 98.2
[2023-05-25] MEDS: AMLODIPINE 5 MG TABLET PO SCH (17:57)
[2023-05-25 20:00] VITALS: BP 126/77; TEMP 98.1; O2SAT 97
[2023-05-25] MEDS: ATORVASTATIN 40 MG TABLET PO SCH (20:39)
[2023-05-25] MEDS: FAMOTIDINE 20 MG TABLET PO SCH (20:40)
[2023-05-25] MEDS: QUETIAPINE FUMARATE 25 MG TABLET PO SCH (20:43)
[2023-05-26 04:00] VITALS: BP 162/104; TEMP 98.5; O2SAT 100
[2023-05-26 04:20] VITALS: BP 137/83; TEMP 98; O2SAT 99
[2023-05-26 07:02] LABS: BASOPHILS # (AUTO) 0.1 K/UL (0.0-0.2); BASOPHILS % (AUTO) 0.5 % (0.0-2.0); EOSINOPHILS % (AUTO) 0.4 % (0.0-7.0); HEMATOCRIT 39.2 % (36.7-47.1); HEMOGLOBIN 13.6 g/dL (12.5-16.3); LYMPHOCYTES # (AUTO) 0.7 K/uL (0.8-4.8); LYMPHOCYTES % (AUTO) 5.3 % (20.5-51.5); MEAN CORPUSCULAR HEMOGLOBIN 33.6 uug (23.8-33.4); MEAN CORPUSCULAR HGB CONC 35 g/dL (32.5-36.3); MONOCYTES # (AUTO) 0.9 K/uL (0.1-1.30); MONOCYTES % (AUTO) 6.6 % (0.0-11.0); NEUTROPHILS # (AUTO) 11.6 K/uL (1.8-8.9); NEUTROPHILS % (AUTO) 87.2 % (38.5-71.5); PLATELET COUNT (AUTO) 333 K/uL (152-348); RED BLOOD CELL COUNT(AUTO) 4.04 MIL/uL (4.06-5.63); RED CELL DISTRIBUTION WIDTH 13.9 % (12.1-16.2); WHITE BLOOD COUNT (AUTO) 13.3 K/uL (3.6-10.2)
[2023-05-26 07:20] LABS: DIFFERENTIAL COMMENT 1
[2023-05-26 07:24] LABS: CALCIUM 9.8 mg/dL (8.5-10.1); CARBON DIOXIDE 22 mmol/L (21-32); CHLORIDE 118 mmol/L (98-107); CREATININE 1.1 mg/dL (0.6-1.3); GLUCOSE 110 mg/dL (74-106); MAGNESIUM 2.6 mg/dL (1.8-2.4); PHOSPHOROUS 3.4 mg/dL (2.5-4.9); POTASSIUM 3.2 mmol/L (3.5-5.1); SODIUM SERUM 154 mmol/L (136-145); UREA NITROGEN, BLOOD 14 mg/dL (7-18)
[2023-05-26] MEDS: IV D5W 1000ML 1,000 ML IV ONE (09:07)
[2023-05-26] MEDS: POTASSIUM CHLORIDE 20 MEQ POWDER PACKET PO ONE (10:37)
[2023-05-26 11:09] VITALS: BP 167/75; TEMP 97.8; O2SAT 98
[2023-05-26] MEDS: OLANZAPINE 10 MG VIAL IM ONE (13:21)
[2023-05-26 15:29] VITALS: BP 155/82; TEMP 97.6; O2SAT 98
[2023-05-26 20:00] VITALS: BP 152/88; TEMP 98.7; O2SAT 94
[2023-05-27 04:00] VITALS: BP 161/89; TEMP 98.1; O2SAT 96
[2023-05-27 06:59] LABS: BASOPHILS # (AUTO) 0.1 K/UL (0.0-0.2); BASOPHILS % (AUTO) 0.8 % (0.0-2.0); EOSINOPHILS # (AUTO) 0.2 K/uL (0.0-0.7); EOSINOPHILS % (AUTO) 1.2 % (0.0-7.0); HEMATOCRIT 43.9 % (36.7-47.1); LYMPHOCYTES # (AUTO) 1.2 K/uL (0.8-4.8); MEAN CORPUSCULAR HEMOGLOBIN 33.6 uug (23.8-33.4); MEAN CORPUSCULAR HGB CONC 34 g/dL (32.5-36.3); MEAN CORPUSCULAR VOLUME 98.3 fL (73.0-96.2); MONOCYTES # (AUTO) 1.3 K/uL (0.1-1.30); MONOCYTES % (AUTO) 7.2 % (0.0-11.0); NEUTROPHILS # (AUTO) 14.6 K/uL (1.8-8.9); NEUTROPHILS % (AUTO) 83.8 % (38.5-71.5); PLATELET COUNT (AUTO) 430 K/uL (152-348); RED BLOOD CELL COUNT(AUTO) 4.46 MIL/uL (4.06-5.63); RED CELL DISTRIBUTION WIDTH 14.5 % (12.1-16.2); WHITE BLOOD COUNT (AUTO) 17.5 K/uL (3.6-10.2)
[2023-05-27 07:07] LABS: CALCIUM 10.2 mg/dL (8.5-10.1); CARBON DIOXIDE 27 mmol/L (21-32); CHLORIDE 117 mmol/L (98-107); CREATININE 1.4 mg/dL (0.6-1.3); GLUCOSE 101 mg/dL (74-106); MAGNESIUM 2.6 mg/dL (1.8-2.4); PHOSPHOROUS 3.6 mg/dL (2.5-4.9); UREA NITROGEN, BLOOD 15 mg/dL (7-18)
[2023-05-27 07:08] LABS: DIFFERENTIAL COMMENT 1
[2023-05-27 08:22] LABS: POTASSIUM 2.7 mmol/L (3.5-5.1); SODIUM SERUM 156 mmol/L (136-145)
[2023-05-27 08:43] VITALS: BP 147/75; TEMP 98; O2SAT 95
[2023-05-27] MEDS: IV D5W 1000ML 1,000 ML IV SCH (09:07)
[2023-05-27] MEDS ORDERED: LITHIUM CARBONATE 300 MG TABLET.SA PO SCH (09:15)
[2023-05-27] MEDS: LITHIUM CARBONATE 300 MG CAPSULE PO SCH (09:40)
[2023-05-27 11:36] VITALS: BP 144/67; TEMP 97.8; O2SAT 95
[2023-05-27] MEDS: POTASSIUM CHLORIDE 10 MEQ, LIDOCAINE-MPF 1% 1 ML in IV DEXTROSE 5% 100 ML IV SCH (12:18)
[2023-05-27 12:25] LABS: *BILIRUBIN,URIN NEGATIVE (NEGATIVE); *BLOOD, URINE 2+ (NEGATIVE); *CLARITY,URINE CLEAR (CLEAR); *COLOR,URINE YELLOW (YELLOW); *KETONES,URINE NEGATIVE (NEGATIVE); *PROTEIN,URINE NEGATIVE (NEGATIVE); *UROBILINOGEN,URINE 0.2 E.U./dl (NORMAL); LEUKOCYTE ESTERASE ,URINE TRACE (NEGATIVE); NITRITE, URINE NEGATIVE (NEGATIVE); UGLUCOSE NEGATIVE (NEGATIVE)
[2023-05-27 13:10] LABS: RBC,URINE 50-80 /HPF (0-3)
[2023-05-27 16:03] VITALS: BP 142/71; TEMP 97.6; O2SAT 94
[2023-05-27 17:39] VITALS: BP 148/70; TEMP 97.8; O2SAT 97
[2023-05-27] MEDS ORDERED: LORAZEPAM 2 MG/1 ML VIAL IV PRN (18:15)
[2023-05-27] MEDS: OLANZAPINE 10 MG VIAL IM ONE (18:37)
[2023-05-27 20:00] VITALS: BP 154/74; TEMP 98; O2SAT 96
[2023-05-27] MEDS: NEOMY/BACITRAC/POLYMI OINT 28.35 GM TUBE TP SCH (22:11)
[2023-05-28 04:00] VITALS: BP 163/92; TEMP 98.8; O2SAT 97
[2023-05-28 07:35] LABS: THYROID STIMULATING HORMONE 1.212 mIU/mL (0.358-3.740)
[2023-05-28] MEDS ORDERED: QUETIAPINE FUMARATE 25 MG TABLET PO PRN (08:15)
[2023-05-28 08:21] LABS: C-REACTIVE PROTEIN 4.95 mg/dL (0.00-0.30); VANCOMYCIN,RANDOM 15.1 ug/mL (20.0-30.0)
[2023-05-28 08:49] LABS: BASOPHILS # (AUTO) 0.1 K/UL (0.0-0.2); BASOPHILS % (AUTO) 0.6 % (0.0-2.0); DIFFERENTIAL COMMENT 0; EOSINOPHILS # (AUTO) 0.2 K/uL (0.0-0.7); EOSINOPHILS % (AUTO) 1.3 % (0.0-7.0); HEMATOCRIT 40.6 % (36.7-47.1); HEMOGLOBIN 13.7 g/dL (12.5-16.3); LYMPHOCYTES # (AUTO) 1.1 K/uL (0.8-4.8); LYMPHOCYTES % (AUTO) 6.8 % (20.5-51.5); MEAN CORPUSCULAR HEMOGLOBIN 33.2 uug (23.8-33.4); MEAN CORPUSCULAR HGB CONC 34 g/dL (32.5-36.3); MEAN CORPUSCULAR VOLUME 98.1 fL (73.0-96.2); MONOCYTES # (AUTO) 1.3 K/uL (0.1-1.30); MONOCYTES % (AUTO) 8.2 % (0.0-11.0); NEUTROPHILS # (AUTO) 13.3 K/uL (1.8-8.9); NEUTROPHILS % (AUTO) 83.1 % (38.5-71.5); PLATELET COUNT (AUTO) 425 K/uL (152-348); RED BLOOD CELL COUNT(AUTO) 4.14 MIL/uL (4.06-5.63); RED CELL DISTRIBUTION WIDTH 14.5 % (12.1-16.2)
[2023-05-28 08:54] LABS: CALCIUM 10.3 mg/dL (8.5-10.1); CARBON DIOXIDE 24 mmol/L (21-32); CHLORIDE 120 mmol/L (98-107); CREATININE 1.5 mg/dL (0.6-1.3); GLUCOSE 102 mg/dL (74-106); MAGNESIUM 2.8 mg/dL (1.8-2.4); PHOSPHOROUS 3.5 mg/dL (2.5-4.9); POTASSIUM 3.4 mmol/L (3.5-5.1); UREA NITROGEN, BLOOD 18 mg/dL (7-18)
[2023-05-28 08:55] LABS: SODIUM SERUM 159 mmol/L (136-145)
[2023-05-28] MEDS: VANCOMYCIN IV 1,000 MG in IV DEXTROSE 5% 250 ML IV SCH (10:28)
[2023-05-28 11:08] LABS: *BILIRUBIN,URIN NEGATIVE (NEGATIVE); *BLOOD, URINE NEGATIVE (NEGATIVE); *CLARITY,URINE CLEAR (CLEAR); *COLOR,URINE YELLOW (YELLOW); *KETONES,URINE NEGATIVE (NEGATIVE); *PROTEIN,URINE NEGATIVE (NEGATIVE); *UROBILINOGEN,URINE 0.2 E.U./dl (NORMAL); LEUKOCYTE ESTERASE ,URINE 1+ (NEGATIVE); NITRITE, URINE NEGATIVE (NEGATIVE); UGLUCOSE NEGATIVE (NEGATIVE)
[2023-05-28 11:30] VITALS: BP 149/77; TEMP 97.9; O2SAT 97
[2023-05-28 11:34] LABS: *CREATININE,URINE 55.8 mg/dL (30-125); *URINE TOTAL PROTEIN RANDOM 27.7 mg/dL (<150/24HR)
[2023-05-28] MEDS: POTASSIUM CHLORIDE 10 MEQ TAB.PRT.SR PO ONE (11:40)
[2023-05-28 11:49] LABS: RBC,URINE 0-3 /HPF (0-3)
[2023-05-28 11:50] LABS: BACTERIA,URINE MODERATE /HPF (NONE SEEN); CALCIUM OXALATE CRYSTALS,UR FEW /HPF (NONE SEEN); SQUAMOUS EPITHELIAL CELL,UR FEW /HPF (NONE SEEN); YEAST,URINE BUDDING YEAST /HPF (NONE SEEN)
[2023-05-28] MEDS ORDERED: FLUCONAZOLE 100 MG TABLET PO SCH (12:45)
[2023-05-28 16:20] VITALS: BP 133/80; TEMP 97.8; O2SAT 99
[2023-05-28 20:00] VITALS: BP 150/92; TEMP 98; O2SAT 96
[2023-05-28] MEDS: FLUCONAZOLE 100 MG TABLET PO SCH (20:40)
[2023-05-29 04:00] VITALS: BP 140/98; TEMP 99; O2SAT 99
[2023-05-29 07:42] LABS: BASOPHILS # (AUTO) 0.2 K/UL (0.0-0.2); BASOPHILS % (AUTO) 1.2 % (0.0-2.0); EOSINOPHILS # (AUTO) 0.3 K/uL (0.0-0.7); EOSINOPHILS % (AUTO) 2.3 % (0.0-7.0); HEMATOCRIT 41.1 % (36.7-47.1); LYMPHOCYTES # (AUTO) 1.1 K/uL (0.8-4.8); LYMPHOCYTES % (AUTO) 7.3 % (20.5-51.5); MEAN CORPUSCULAR HEMOGLOBIN 33.4 uug (23.8-33.4); MEAN CORPUSCULAR HGB CONC 34 g/dL (32.5-36.3); MONOCYTES # (AUTO) 1.3 K/uL (0.1-1.30); MONOCYTES % (AUTO) 8.7 % (0.0-11.0); NEUTROPHILS # (AUTO) 12.4 K/uL (1.8-8.9); NEUTROPHILS % (AUTO) 80.5 % (38.5-71.5); PLATELET COUNT (AUTO) 440 K/uL (152-348); RED BLOOD CELL COUNT(AUTO) 4.19 MIL/uL (4.06-5.63); RED CELL DISTRIBUTION WIDTH 14.5 % (12.1-16.2); WHITE BLOOD COUNT (AUTO) 15.4 K/uL (3.6-10.2)
[2023-05-29 08:04] LABS: CALCIUM 9.4 mg/dL (8.5-10.1); CARBON DIOXIDE 26 mmol/L (21-32); CHLORIDE 120 mmol/L (98-107); CREATININE 1.6 mg/dL (0.6-1.3); GLUCOSE 111 mg/dL (74-106); MAGNESIUM 2.3 mg/dL (1.8-2.4); PHOSPHOROUS 3.4 mg/dL (2.5-4.9); POTASSIUM 2.9 mmol/L (3.5-5.1); UREA NITROGEN, BLOOD 20 mg/dL (7-18)
[2023-05-29 08:17] LABS: DIFFERENTIAL COMMENT 1
[2023-05-29 08:26] VITALS: BP 150/82; TEMP 98.8; O2SAT 95
[2023-05-29 08:43] LABS: SODIUM SERUM 156 mmol/L (136-145)
[2023-05-29] MEDS: POTASSIUM CHLORIDE 50 ML IV SCH (10:58)
[2023-05-29 11:30] VITALS: BP 131/85; TEMP 98.7; O2SAT 96
[2023-05-29] MEDS: LORAZEPAM 2 MG/1 ML VIAL IV PRN (12:41)
[2023-05-29 15:59] VITALS: BP 150/84; TEMP 98.4; O2SAT 95
[2023-05-29] MEDS: CEFTRIAXONE 1 G in IV DEXTROSE 5% 50 ML IV SCH (17:11)
[2023-05-29 20:00] VITALS: TEMP 98
[2023-05-30 04:00] VITALS: TEMP 98
[2023-05-30 07:53] LABS: BASOPHILS # (AUTO) 0.1 K/UL (0.0-0.2); BASOPHILS % (AUTO) 1.1 % (0.0-2.0); EOSINOPHILS # (AUTO) 0.3 K/uL (0.0-0.7); EOSINOPHILS % (AUTO) 2.4 % (0.0-7.0); HEMATOCRIT 43.7 % (36.7-47.1); HEMOGLOBIN 14.8 g/dL (12.5-16.3); LYMPHOCYTES # (AUTO) 1.1 K/uL (0.8-4.8); LYMPHOCYTES % (AUTO) 8.6 % (20.5-51.5); MEAN CORPUSCULAR HEMOGLOBIN 33.5 uug (23.8-33.4); MEAN CORPUSCULAR HGB CONC 34 g/dL (32.5-36.3); MEAN CORPUSCULAR VOLUME 98.6 fL (73.0-96.2); MONOCYTES # (AUTO) 1.4 K/uL (0.1-1.30); NEUTROPHILS # (AUTO) 10.1 K/uL (1.8-8.9); NEUTROPHILS % (AUTO) 76.9 % (38.5-71.5); PLATELET COUNT (AUTO) 492 K/uL (152-348); RED BLOOD CELL COUNT(AUTO) 4.43 MIL/uL (4.06-5.63); RED CELL DISTRIBUTION WIDTH 14.7 % (12.1-16.2); WHITE BLOOD COUNT (AUTO) 13.1 K/uL (3.6-10.2)
[2023-05-30 07:56] LABS: DIFFERENTIAL COMMENT 1
[2023-05-30 08:11] LABS: CALCIUM 10.2 mg/dL (8.5-10.1); CARBON DIOXIDE 25 mmol/L (21-32); CHLORIDE 124 mmol/L (98-107); CREATININE 1.7 mg/dL (0.6-1.3); GLUCOSE 101 mg/dL (74-106); MAGNESIUM 2.8 mg/dL (1.8-2.4); PHOSPHOROUS 3.4 mg/dL (2.5-4.9); UREA NITROGEN, BLOOD 19 mg/dL (7-18)
[2023-05-30 08:41] VITALS: BP 160/65; TEMP 99; O2SAT 96
[2023-05-30 08:59] LABS: SODIUM SERUM 162 mmol/L (136-145)
[2023-05-30 10:54] LABS: *BILIRUBIN,URIN NEGATIVE (NEGATIVE); *CLARITY,URINE CLEAR (CLEAR); *COLOR,URINE YELLOW (YELLOW); *KETONES,URINE NEGATIVE (NEGATIVE); *PROTEIN,URINE NEGATIVE (NEGATIVE); *UROBILINOGEN,URINE 0.2 E.U./dl (NORMAL); LEUKOCYTE ESTERASE ,URINE NEGATIVE (NEGATIVE); NITRITE, URINE NEGATIVE (NEGATIVE); UGLUCOSE NEGATIVE (NEGATIVE)
[2023-05-30 10:57] LABS: *CREATININE,URINE 46.7 mg/dL (30-125); *URINE TOTAL PROTEIN RANDOM 19.8 mg/dL (<150/24HR)
[2023-05-30 11:04] LABS: *BLOOD, URINE TRACE (NEGATIVE)
[2023-05-30 11:14] LABS: BACTERIA,URINE FEW /HPF (NONE SEEN); SQUAMOUS EPITHELIAL CELL,UR FEW /HPF (NONE SEEN); WBC,URINE 0-3 /HPF (0-3)
[2023-05-30 15:00] VITALS: BP 136/80; TEMP 97.5; O2SAT 96
[2023-05-30] MEDS: VANCOMYCIN IV 1,000 MG in IV DEXTROSE 5% 250 ML IV SCH (16:14)
[2023-05-30 16:41] VITALS: BP 139/90; TEMP 98; O2SAT 96
[2023-05-30 20:00] VITALS: BP 137/86; TEMP 97.7; O2SAT 95
[2023-05-31 04:00] VITALS: BP 132/80; TEMP 97.4; O2SAT 95
[2023-05-31 08:09] LABS: BASOPHILS # (AUTO) 0.1 K/UL (0.0-0.2); BASOPHILS % (AUTO) 1.1 % (0.0-2.0); EOSINOPHILS # (AUTO) 0.3 K/uL (0.0-0.7); EOSINOPHILS % (AUTO) 2.2 % (0.0-7.0); HEMATOCRIT 41.5 % (36.7-47.1); HEMOGLOBIN 14.1 g/dL (12.5-16.3); LYMPHOCYTES # (AUTO) 1.3 K/uL (0.8-4.8); LYMPHOCYTES % (AUTO) 11.2 % (20.5-51.5); MEAN CORPUSCULAR HEMOGLOBIN 33.3 uug (23.8-33.4); MEAN CORPUSCULAR HGB CONC 34 g/dL (32.5-36.3); MEAN CORPUSCULAR VOLUME 97.8 fL (73.0-96.2); MONOCYTES # (AUTO) 1.5 K/uL (0.1-1.30); MONOCYTES % (AUTO) 12.5 % (0.0-11.0); NEUTROPHILS # (AUTO) 8.5 K/uL (1.8-8.9); PLATELET COUNT (AUTO) 469 K/uL (152-348); RED BLOOD CELL COUNT(AUTO) 4.25 MIL/uL (4.06-5.63); RED CELL DISTRIBUTION WIDTH 14.5 % (12.1-16.2); WHITE BLOOD COUNT (AUTO) 11.6 K/uL (3.6-10.2)
[2023-05-31 08:20] LABS: DIFFERENTIAL COMMENT 1
[2023-05-31 08:34] LABS: CALCIUM 9.6 mg/dL (8.5-10.1); CARBON DIOXIDE 25 mmol/L (21-32); CHLORIDE 117 mmol/L (98-107); CREATININE 1.8 mg/dL (0.6-1.3); GLUCOSE 145 mg/dL (74-106); MAGNESIUM 2.4 mg/dL (1.8-2.4); PHOSPHOROUS 3.2 mg/dL (2.5-4.9); POTASSIUM 3.9 mmol/L (3.5-5.1); SODIUM SERUM 152 mmol/L (136-145); UREA NITROGEN, BLOOD 17 mg/dL (7-18)
[2023-05-31 10:48] LABS: *BILIRUBIN,URIN NEGATIVE (NEGATIVE); *CLARITY,URINE CLEAR (CLEAR); *COLOR,URINE YELLOW (YELLOW); *KETONES,URINE NEGATIVE (NEGATIVE); *PROTEIN,URINE NEGATIVE (NEGATIVE); *UROBILINOGEN,URINE 0.2 E.U./dl (NORMAL); LEUKOCYTE ESTERASE ,URINE NEGATIVE (NEGATIVE); NITRITE, URINE NEGATIVE (NEGATIVE); PH,URINE 6.5 (5.0-8.0); UGLUCOSE NEGATIVE (NEGATIVE)
[2023-05-31 10:55] LABS: *CREATININE,URINE 46.5 mg/dL (30-125); *URINE TOTAL PROTEIN RANDOM 18.6 mg/dL (<150/24HR)
[2023-05-31 11:02] LABS: *BLOOD, URINE NEGATIVE (NEGATIVE)
[2023-05-31 11:30] VITALS: BP 154/69; TEMP 98.3; O2SAT 98
[2023-05-31 15:55] VITALS: BP 149/61; TEMP 98.8; O2SAT 97
[2023-05-31] MEDS: DIVALPROEX SPRINKLE 125 MG CAP.SPRINK PO SCH (20:03)
[2023-05-31 20:10] VITALS: BP 105/54; TEMP 98.3; O2SAT 96
[2023-06-01 04:17] VITALS: BP 150/87; TEMP 98.2; O2SAT 97
[2023-06-01 07:26] LABS: BASOPHILS # (AUTO) 0.1 K/UL (0.0-0.2); BASOPHILS % (AUTO) 0.6 % (0.0-2.0); EOSINOPHILS # (AUTO) 0.1 K/uL (0.0-0.7); EOSINOPHILS % (AUTO) 0.4 % (0.0-7.0); HEMATOCRIT 41.2 % (36.7-47.1); HEMOGLOBIN 14.4 g/dL (12.5-16.3); LYMPHOCYTES # (AUTO) 1.7 K/uL (0.8-4.8); LYMPHOCYTES % (AUTO) 10.7 % (20.5-51.5); MEAN CORPUSCULAR HEMOGLOBIN 33.9 uug (23.8-33.4); MEAN CORPUSCULAR HGB CONC 35 g/dL (32.5-36.3); MEAN CORPUSCULAR VOLUME 97.3 fL (73.0-96.2); MONOCYTES # (AUTO) 1.5 K/uL (0.1-1.30); MONOCYTES % (AUTO) 9.3 % (0.0-11.0); NEUTROPHILS # (AUTO) 12.6 K/uL (1.8-8.9); PLATELET COUNT (AUTO) 440 K/uL (152-348); RED BLOOD CELL COUNT(AUTO) 4.24 MIL/uL (4.06-5.63); RED CELL DISTRIBUTION WIDTH 14.3 % (12.1-16.2); WHITE BLOOD COUNT (AUTO) 15.9 K/uL (3.6-10.2)
[2023-06-01 07:52] LABS: DIFFERENTIAL COMMENT 1
[2023-06-01 07:53] LABS: ALANINE AMINOTRANSFERASE 32 U/L (16-63); ALBUMIN 2.7 g/dL (3.4-5.0); ALKALINE PHOSPHATASE 83 U/L (50-136); ASPARTATE AMINOTRANSFERASE 16 U/L (15-37); BILIRUBIN,TOTAL 0.5 mg/dL (0.2-1.0); CALCIUM 9.3 mg/dL (8.5-10.1); CARBON DIOXIDE 24 mmol/L (21-32); CHLORIDE 112 mmol/L (98-107); CREATINE KINASE, TOTAL 47 U/L (39-308); GLUCOSE 112 mg/dL (74-106); MAGNESIUM 2.3 mg/dL (1.8-2.4); PHOSPHOROUS 3.4 mg/dL (2.5-4.9); POTASSIUM 3.7 mmol/L (3.5-5.1); SODIUM SERUM 147 mmol/L (136-145); TOTAL PROTEIN, SERUM 7.4 g/dL (6.4-8.2); UREA NITROGEN, BLOOD 22 mg/dL (7-18)
[2023-06-01 08:45] VITALS: BP 130/72; TEMP 97.3; O2SAT 96
[2023-06-01 11:13] VITALS: BP 115/67; TEMP 99.3; O2SAT 100
[2023-06-01 15:48] VITALS: BP 139/71; TEMP 99; O2SAT 99
[2023-06-01 20:25] VITALS: BP 101/70; TEMP 97.8; O2SAT 95
[2023-06-01] MEDS: IV D5W 1000ML 1,000 ML IV SCH (20:42)
[2023-06-02 04:35] VITALS: BP 124/80; TEMP 97.5; O2SAT 98
[2023-06-02 07:41] LABS: CALCIUM 9.2 mg/dL (8.5-10.1); CARBON DIOXIDE 24 mmol/L (21-32); CHLORIDE 112 mmol/L (98-107); GLUCOSE 120 mg/dL (74-106); MAGNESIUM 2.3 mg/dL (1.8-2.4); PHOSPHOROUS 3.7 mg/dL (2.5-4.9); POTASSIUM 3.5 mmol/L (3.5-5.1); SODIUM SERUM 146 mmol/L (136-145); UREA NITROGEN, BLOOD 22 mg/dL (7-18)
[2023-06-02 07:50] LABS: C-REACTIVE PROTEIN 13.69 mg/dL (0.00-0.30)
[2023-06-02 07:55] LABS: BASOPHILS # (AUTO) 0.1 K/UL (0.0-0.2); BASOPHILS % (AUTO) 0.4 % (0.0-2.0); EOSINOPHILS # (AUTO) 0.2 K/uL (0.0-0.7); EOSINOPHILS % (AUTO) 1.3 % (0.0-7.0); HEMOGLOBIN 13.4 g/dL (12.5-16.3); LYMPHOCYTES # (AUTO) 1.5 K/uL (0.8-4.8); LYMPHOCYTES % (AUTO) 10.2 % (20.5-51.5); MEAN CORPUSCULAR HEMOGLOBIN 33.4 uug (23.8-33.4); MEAN CORPUSCULAR HGB CONC 34 g/dL (32.5-36.3); MONOCYTES # (AUTO) 1.2 K/uL (0.1-1.30); MONOCYTES % (AUTO) 7.9 % (0.0-11.0); NEUTROPHILS # (AUTO) 11.7 K/uL (1.8-8.9); NEUTROPHILS % (AUTO) 80.2 % (38.5-71.5); PLATELET COUNT (AUTO) 386 K/uL (152-348); RED BLOOD CELL COUNT(AUTO) 4.03 MIL/uL (4.06-5.63); RED CELL DISTRIBUTION WIDTH 14.5 % (12.1-16.2); WHITE BLOOD COUNT (AUTO) 14.6 K/uL (3.6-10.2)
[2023-06-02 08:08] LABS: DIFFERENTIAL COMMENT 1
[2023-06-02 08:30] VITALS: BP 125/50; TEMP 97.4; O2SAT 94
[2023-06-02] MEDS ORDERED: DIVA125C2 PO (10:34)
[2023-06-02] MEDS ORDERED: FLUC100T PO (10:34)
[2023-06-02] MEDS ORDERED: QUET25TA PO (10:34)
[2023-06-02 12:01] VITALS: BP 130/65; TEMP 98.2; O2SAT 96
== END 2023-06-02 14:35 | disposition home health service (06) | DRG 207 ==
LOC: ER 06:19 → TRANSITION 14:30 → CCU 05-22 08:08 → TELE-TD3 05-23 06:13 → MEDSURG3 05-24 10:20
PROVIDERS: ADMIT Nurse Practitioner Acute Care; ATTEND Nurse Practitioner Acute Care
PROC: 02HV33Z Insertion of Infusion Device into Superior Vena Cava, Percutaneous Approach (ICD-10-PCS; principal; 2023-05-16)
PROC: 5A1955Z Respiratory Ventilation, Greater than 96 Consecutive Hours (ICD-10-PCS; 2023-05-16)
PROC: 0BH17EZ Insertion of Endotracheal Airway into Trachea, Via Natural or Artificial Opening (ICD-10-PCS; 2023-05-16)
PROC: 0DH67UZ Insertion of Feeding Device into Stomach, Via Natural or Artificial Opening (ICD-10-PCS; 2023-05-22)
PROC: 05HY33Z Insertion of Infusion Device into Upper Vein, Percutaneous Approach (ICD-10-PCS; 2023-05-25)
DX: J69.0 Pneumonitis due to inhalation of food and vomit (principal); J96.01 Acute respiratory failure with hypoxia; G92.8 Other toxic encephalopathy; N17.0 Acute kidney failure with tubular necrosis; K92.0 Hematemesis; E87.0 Hyperosmolality and hypernatremia; F02.82 Dementia in other diseases classified elsewhere, unspecified severity, with psychotic disturbance; D68.59 Other primary thrombophilia; B37.49 Other urogenital candidiasis; Z22.322 Carrier or suspected carrier of Methicillin resistant Staphylococcus aureus; E87.6 Hypokalemia; K21.9 Gastro-esophageal reflux disease without esophagitis; I35.8 Other nonrheumatic aortic valve disorders; I25.10 Atherosclerotic heart disease of native coronary artery without angina pectoris; G30.9 Alzheimer's disease, unspecified; F31.9 Bipolar disorder, unspecified; F12.10 Cannabis abuse, uncomplicated; N40.0 Benign prostatic hyperplasia without lower urinary tract symptoms; R62.7 Adult failure to thrive; T43.595A Adverse effect of other antipsychotics and neuroleptics, initial encounter; Y92.009 Unspecified place in unspecified non-institutional (private) residence as the place of occurrence of the external cause; N18.9 Chronic kidney disease, unspecified; I12.9 Hypertensive chronic kidney disease with stage 1 through stage 4 chronic kidney disease, or unspecified chronic kidney disease; Z79.899 Other long term (current) drug therapy; Z90.79 Acquired absence of other genital organ(s); E78.00 Pure hypercholesterolemia, unspecified; F09 Unspecified mental disorder due to known physiological condition
CPT/HCPCS: 36415; 36600; 70030-TC; 70450; 71045; 76770; 82747; 82803; 83605; 83735; 83921; 84100; 84300; 84443; 84484; 85014; 85025; 86140; 86850; 86900; 86901; 87040; 93005; 93307; 94002; 94003; 94760; 99082-TC; A4606; A4663; C1758; C9113; G0378; G0480; J0330; J0360; J0696; J2001; J2060; J2358; J2543; J3010; J3370; J3480; J3490; J7040; J7050; J7070; J8499

== ENCOUNTER 2025-03-04 21:28 | Emergency (ER) | payer MEDICARE, BC ==
[~2025-03-04] VITALS: Ht 162.6 cm; Wt 77.1 kg
[~2025-03-04 21:28] MED LIST: ALPR0.255 PO; AMLO-212 PO; ASPI81TA31 PO; ATOR40TA PO; CLOP75TA15 PO; DIVA125C2 PO; FAMO40TA7 PO; FLUC100T PO; QUET25TA PO; RAMI10CA69 PO
[2025-03-04 21:32] VITALS: BP 160/91
[2025-03-04] MEDS ORDERED: ACETAMINOPHEN 325 MG TABLET ONE (21:48)
[2025-03-04] MEDS: ACETAMINOPHEN 325 MG TABLET PO ONE (21:50)
[2025-03-04] MEDS ORDERED: AMOXICILLIN-CLAVUL 875-125MG TABLET ONE (22:20)
[2025-03-04] MEDS ORDERED: AMOX-427 PO (22:21)
[2025-03-04] MEDS: AMOXICILLIN-CLAVUL 875-125MG TABLET PO ONE (22:22)
[2025-03-04 22:29] VITALS: BP 160/91; O2SAT 94
== END 2025-03-04 22:30 | disposition home or self-care (01) ==
LOC: ER 21:31
DX: S61.411A Laceration without foreign body of right hand, initial encounter (principal); F32.A Depression, unspecified; E78.5 Hyperlipidemia, unspecified; F41.9 Anxiety disorder, unspecified; I25.10 Atherosclerotic heart disease of native coronary artery without angina pectoris; M19.041 Primary osteoarthritis, right hand; Z79.02 Long term (current) use of antithrombotics/antiplatelets; Z79.82 Long term (current) use of aspirin; Z79.899 Other long term (current) drug therapy; Z95.0 Presence of cardiac pacemaker; W54.0XXA Bitten by dog, initial encounter; Y93.89 Activity, other specified; Y92.009 Unspecified place in unspecified non-institutional (private) residence as the place of occurrence of the external cause; Y99.9 Unspecified external cause status
CPT/HCPCS: 73120; A4606; A4663